=== PATIENT | female | born 1955 | race Two or more races ===

== ENCOUNTER 2023-04-15 10:09 | Emergency (ER) | payer OTHER ==
[~2023-04-15] VITALS: Ht 152.4 cm; Wt 50.0 kg
[2023-04-15 12:14] VITALS: BP 179/66; PULSE 58; RESP 18; TEMP 97.9; O2SAT 100
[2023-04-15] MEDS ORDERED: IBUPROFEN 600 MG TAB PO ONE (13:15)
[2023-04-15] MEDS ORDERED: IBUP1TAB5 PO (13:27)
== END 2023-04-15 13:37 | disposition home or self-care (01) ==
LOC: ER 10:09
DX: S83.91XA Sprain of unspecified site of right knee, initial encounter (principal); I10 Essential (primary) hypertension; E78.5 Hyperlipidemia, unspecified; Z90.49 Acquired absence of other specified parts of digestive tract; Z98.890 Other specified postprocedural states; X50.1XXA Overexertion from prolonged static or awkward postures, initial encounter; Y93.89 Activity, other specified; Y92.89 Other specified places as the place of occurrence of the external cause; Y99.8 Other external cause status
CPT/HCPCS: 73562